=== PATIENT | female | born 1975 | race Caucasian/White ===

== ENCOUNTER 2025-06-26 08:08 | Outpatient (AMB) | payer BC, SELFPAY ==
--- NOTE | 2025-06-26 08:13 | MHC.OFFVIS ---
Intake Visit Reasons: 1 yr follow up HPI Comments Details: 50 yo LH woman was going through menopause in 2023 when she had some hormonal levels done, which included prolactin level, which was 50.7 she had a brain MRI which revealed heterogenous pituitary, a right frontal 5 mm white matter lesion, 5 mm pineal cyst, and 3 mm tonsillar ectopia. She was having some symptoms of menopause and was considering hormone replacement therapy but otherwise there was no new symptom. Specifically there was no change in her vision or double vision. Review of Systems Narrative - Nervous System: Denies headaches, visual disturbances. - Endocrine: Reports menopause; no further endocrine symptoms reported. Physical Exam Neuro Other: Mental Status: Alert and oriented to person, place, and time. Normal attention. Normal spontaneous speech, fluency, and comprehension. No obvious issues with mood and memory. Affect is appropriate. Cranial Nerves: CN II: Visual bueno full to confrontation, visual acuity intact. CN III, IV, : Pupils equal, round, reactive to light and accommodation. Extraocular movements are normal. CN V: Facial sensation is normal. CN VII: Facial movements symmetrical. CN VIII: Hearing intact to bedside conversation is normal. CN IX, X: Palate elevates symmetrically. CN XI: Shoulder shrug and head turn symmetrical. CN XII: Tongue midline without atrophy or fasciculations. Motor: Bulk and tone normal in all extremities. No significant muscle weakness in arms and legs. No drift. Reflexes: Deep tendon reflexes 2+ and symmetric. Plantar response down-going bilaterally. Coordination: [id number] and [id number] testing normal. No dysmetria. Gait and Station: No obvious gait abnormality. No ataxia or instability. Extrapyramidal: Full facial expressions and blinking. No rigidity. Movements are appropriate with no tremor or abnormality. Speech: Normal; no dysarthria or tremor. Assessment & Plan Assessment & Plan (1) Brain lesion: Comment: MRI brain WWO at [facility] in May 2024: No sig change (report) MRI brain WWO at [facility] in February 2024: 5mm R frontal WM lesion, 3 mm tonsillar ectopia, heterogenous pituitary, 5mm pineal cyst. Code(s): G93.9 - Disorder of brain, unspecified Category: Medical Plan The patient and I reviewed her MRI results, which indicate a stable pituitary adenoma and no significant change in other incidental findings. I confirmed that prolactin levels have returned to normal and are uncomplicated by any clinical symptoms. We discussed that annual prolactin evaluation is adequate for current management given the stability of the adenoma. The potential pituitary adenoma is not symptomatic; hence active treatment is not warranted. I reassured the patient about the benign nature of the mentioned findings and instructed her to reach out if new symptoms arise. Coding Level of Care Code Est Pt Level 4 (04710) Diagnoses Brain lesion G93.9
== END 2025-06-26 08:25 | disposition home or self-care (01) ==
LOC: HO.HSM 08:08
PROVIDERS: PCP Internal Medicine; Referring Provider Internal Medicine; Visit Provider Psychiatry & Neurology Neurology
DX: G93.9 Disorder of brain, unspecified (principal)
CPT/HCPCS: 99214